=== PATIENT | female | born 1995 | race Asian ===

== ENCOUNTER 2022-04-03 15:02 | Emergency (ER) | payer OTHER ==
[2022-04-03 15:24] VITALS: BP 112/72; PULSE 81; RESP 18; TEMP 98.5; BMI 28.2
[2022-04-03 17:14] LABS: BASO % 0.6 % (0-2.0); EOS % 0.9 % (0-4.5); HEMATOCRIT 41.2 % (32.4-45.2); HEMOGLOBIN 13.6 GM/dL (10.7-15.3); LYMPH % 29.9 % (8-40); MCH 31.4 pg (25.7-33.7); MEAN CELL VOLUME 95.3 fl (80-96); MEAN PLT VOLUME 10.9 fl (7.5-11.1); MONO % 7.4 % (3.8-10.2); NEUT % 61.2 % (42.8-82.8); PLATELET COUNT 242 10^3/uL (134-434); RBC 4.32 M/mm3 (3.60-5.2); RDW 12.6 % (11.6-15.6); WHITE BLOOD COUNT 7.1 K/mm3 (4.0-10.0)
[2022-04-03 17:32] LABS: EPI CELLS 4 /uL (0-25.1); HYALINE CASTS 0 /uL (0-3.1); URINE APPEARANCE CLEAR; URINE BACTERIA 7 /uL (0-1359); URINE BILIRUBIN NEGATIVE (NEGATIVE); URINE COLOR YELLOW; URINE GLUCOSE (UA) NEGATIVE (NEGATIVE); URINE KETONE NEGATIVE (NEGATIVE); URINE LEUK ESTERASE NEGATIVE (NEGATIVE); URINE NITRITE NEGATIVE (NEGATIVE); URINE PROTEIN NEGATIVE (NEGATIVE); URINE RBC 88 /uL (0-23.9); URINE UROBILINOGEN 0.2 mg/dL (0.2-1.0); URINE WBC 6 /uL (0-25.8)
[2022-04-03 17:34] LABS: CALCIUM 9.7 mg/dL (8.5-10.1)
[2022-04-03 17:35] LABS: ALBUMIN 4.2 g/dl (3.4-5.0); BLOOD UREA NITROGEN 10.5 mg/dL (7-18)
[2022-04-03 17:38] LABS: CREATININE 0.7 mg/dL (0.55-1.3)
[2022-04-03 17:40] LABS: BILIRUBIN,TOTAL 0.2 mg/dL (0.2-1); TOT PROT 7.7 g/dl (6.4-8.2)
[2022-04-03 18:14] LABS: HCG,QUALITATIVE URINE Borderline hCG level
== END 2022-04-03 19:33 | disposition home or self-care (01) ==
LOC: JER 15:02
DX: N93.9 Abnormal uterine and vaginal bleeding, unspecified (principal); O03.9 Complete or unspecified spontaneous abortion without complication
CPT/HCPCS: 36415; 76817-TC; 80053; 81003; 84702; 84703; 85025; 86850; 86900; 86901; 87086; 99284-25

== ENCOUNTER 2022-04-05 17:15 | Emergency (ER) | payer OTHER ==
[2022-04-05 17:52] VITALS: BP 131/83; PULSE 81; RESP 18; TEMP 98; BMI 26.5
== END 2022-04-05 19:03 | disposition home or self-care (01) ==
LOC: JER 17:15 → JERFT 17:15
DX: O03.9 Complete or unspecified spontaneous abortion without complication (principal); Z3A.00 Weeks of gestation of pregnancy not specified
CPT/HCPCS: 36415; 84702; 99283-25